=== PATIENT | female | born 1955 | race Caucasian/White ===

== ENCOUNTER 2017-03-08 06:52 | Day surgery (SDC) | payer BC ==
[~2017-03-08 06:52] MED LIST: Lactated Ringers 1,000 ML IV SCH
[2017-03-08] MEDS ORDERED: Propofol 200 MG/20 ML SDV IV ONE (08:00)
--- NOTE | 2017-03-08 08:37 | PCM.OPNOTE ---
- General Post-Op/Procedure Note Date of Surgery/Procedure: 03/08/17 Operative Procedure(s): c scope Findings: sigmoid diverticulosis Pre Op Diagnosis: obstipation Post-Op Diagnosis: sigmoid diverticulosis Anesthesia Technique: KELL Primary Surgeon: Johnathan Ram Anesthesia Provider: Danish Posey Pathology: none Complications: None Condition: Good Free Text/Narrative:: see dictation [id number]
--- NOTE | 2017-03-08 09:21 | OR ---
DATE OF OPERATION: 03/08/2017 SURGEON: Johnathan Ram MD PROCEDURE PERFORMED: Colonoscopy. PREOPERATIVE DIAGNOSES: 1. Obstipation. 2. Change in bowel habits. POSTOPERATIVE DIAGNOSIS: Sigmoid diverticulosis. INDICATIONS FOR PROCEDURE: This is a 61-year-old white female who has noted a change in bowel habits, which appeared to alternate between constipation and diarrhea. She also notes change in the way she defecates and feeling that she has to, she was offered and accepted colonoscopy. DESCRIPTION OF OPERATION: After an excellent IV sedation was administered, digital rectal exam was performed. No marked abnormality was noted. A flexible colonoscope was inserted and advanced to the cecum without difficulty. The following findings were noted. Ascending colon unremarkable. Transverse colon unremarkable. Descending colon unremarkable. Sigmoid with mild diverticulosis. Rectum and anus unremarkable. Colon were deflated as the scope was removed. The patient tolerated the procedure well, was taken to recovery room in good condition. /[id number] MARY/KOSTA
[2017-03-08 09:34] VITALS: BP 122/71
== END 2017-03-08 09:57 | disposition home or self-care (01) ==
LOC: FB.SDS 06:52
PROVIDERS: ATTEND Surgery
DX: K57.30 Diverticulosis of large intestine without perforation or abscess without bleeding (principal); E78.5 Hyperlipidemia, unspecified; Z88.8 Allergy status to other drugs, medicaments and biological substances; Z98.890 Other specified postprocedural states
CPT/HCPCS: 45378; J2704; J7120